=== PATIENT | female | born 1975 | race Caucasian/White ===

== ENCOUNTER 2019-06-13 12:16 | Emergency (ER) | payer BC, OTHER, SELFPAY ==
[2019-06-13 12:21] VITALS: BP 173/85; PULSE 85; RESP 16; TEMP 36.6; O2SAT 98; BMI 26.2
--- NOTE | 2019-06-13 12:32 | XR_ITS ---
WS: [id number] XR hand LT min 3V* [id number] REASON FOR EXAM: trauma FINDINGS: Soft tissue swelling of the thenar and hyperthenar eminence. The phalanges, metacarpals, carpals are normal no fractures are seen. XR/XR hand LT min 3V* [id number] IMPRESSION: Soft tissue swelling of the hand.
--- NOTE | 2019-06-13 14:23 | ED_ITS ---
HPI - Extremity Problem General: Chief complaint: Extremity Injury, Upper Stated complaint: LEFT HAND PAIN Time Seen by Provider: 06/13/19 14:12 History of Present Illness: HPI Narrative: Pt is a 44 y/o F who comes in with an injury to left hand. 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 injury occurred predominantly on the finger #3. The finger is swollen, but she can still move it and has sensation to the finger. She has been applying ice on the finger. The nail and nail bed was not injured. Associated symptoms: Deny chest pain, fever(s) or rash Review of Systems Const: Denies: fever, chills or fatigue Eyes: Denies: change in vision or eye discomfort ENMT: Denies: throat pain, painful swallowing, nasal discharge or nasal congestion Card: Denies: chest pain, palpitations, edema, swelling of feet/ankles, shortness of breath on exertion or shortness of breath when lying down Resp: Denies: shortness of breath, productive cough or non-productive cough GI: Denies: abdominal pain, nausea, vomiting, diarrhea, constipation or blood in stool : Denies: flank pain, painful urination or blood in urine Musc: Reports: extremity pain (L hand finger #3) and extremity swelling (L hand swelling on finger #3); Denies: neck pain or back pain Skin/Breast: Denies: rash or new lesion Neuro: Denies: headache, numbness in extremities or weakness in extremities PFSH ED PFSH: Medical History Avila's deformity, bilateral Plantar wart Porokeratosis Surgical History History of amputation of finger of right hand Hx of cholecystectomy Family History Family/Other Cancer Denies family history of Diabetes CAD (coronary artery disease) Clotting disorder Dementia Hyperlipidemia Psychiatric illness Chronic kidney disease (CKD) Suicide Anesthesia complication Bleeding disorder Family history of premature coronary artery disease Lung disease Hypertension Stroke Social History Smoking and tobacco status: current every day smoker Alcohol intake: current Alcohol intake frequency: holidays/special occasions only Current occupational status: employed Current occupation: [employer] Female Reproductive History: Date of last menstrual period: 05/09/19 Physical Exam Const: COMMON NORMALS: oriented x3 HENMT: COMMON NORMALS: normocephalic HEAD & SCALP: normocephalic MOUTH: oral and palatal mucosa normal THROAT: posterior oropharynx normal and uvula midline Neck/C-Spine: COMMON NORMALS: supple GENERAL: Yes normal visual inspection Resp: COMMON NORMALS: normal respiratory effort, no retractions, no use of accessory muscles and clear to auscultation bilaterally AUSCULTATION: clear to auscultation bilaterally Cardio: COMMON NORMALS: regular rate, regular rhythm, S1 normal heart sound, S2 normal heart sound, no gallops, no clicks, no murmurs and peripheral pulses 2+ throughout RATE: regular rate RHYTHM: regular rhythm HEART SOUNDS: S1 normal and S2 normal PERIPHERAL PULSES: pulses 2+ throughout GI: COMMON NORMALS: normal to inspection, nondistended, normoactive bowel sounds, soft to palpation, non-tender and no masses PALPATION: Yes soft : COMMON NORMALS: Yes no CVA tenderness BLADDER/KIDNEY EXAM: Yes no CVA tenderness Back/Pelvis: COMMON NORMALS: no CVA tenderness Extremity: LEFT UPPER EXTREMITY: Yes hand & digits (No nail bed or nail injury) Left hand and digits: Yes inspection (swelling and ecchymosis of Finger #3), Yes palpation (Tender), Yes ROM (Normal) and Yes neurovascular exam (Intact) Neuro: COMMON NORMALS: oriented x3 and moves all extremities Skin: COMMON NORMALS: no rashes or lesions noted GENERAL SKIN EXAM: no rashes or lesions noted and dry skin Course Vital Signs: Vital signs: Vital Signs Temperature 97.9 F 06/13/19 12:21 Pulse Rate 74 06/13/19 15:11 Respiratory Rate 18 06/13/19 15:11 Blood Pressure 154/104 06/13/19 15:11 Pulse Oximetry 100 06/13/19 15:11 MDM - Extremity (Nontraumatic) Imaging Data^: Xray Ortho: Attestation: I personally reviewed and interpreted this imaging study as follows: Radiologist's impression: [address] [address] XRay Report Signed Patient: Barby Raymond Unit #: [id number] : [id number] Age/Sex: 44 / F ADM Date: 06/13/19 Loc: ER Room/Bed: Attending Dr: Ordering Provider/Ordering MD: Arnie Mac MD, [facility] [place] Date of Service: 06/13/19 Procedure(s): XR hand LT min 3V* [id number] Accession Number(s): [id number] Report Number: [id number] WS: [id number] XR hand LT min 3V* [id number] REASON FOR EXAM: trauma FINDINGS: Soft tissue swelling of the thenar and hyperthenar eminence. The phalanges, metacarpals, carpals are normal no fractures are seen. XR/XR hand LT min 3V* [id number] IMPRESSION: Soft tissue swelling of the hand. Dictated By: Gino Diallo DO Signed By: Gino Diallo DO Signed Date/Time: 06/13/19 1252 DD/ 1251 Discharge Plan Discharge Patient Disposition: Home, Self-Care Clinical Impression: Contusion Qualifiers: Encounter type: initial encounter Contusion area: finger Finger: middle finger Damage to nail status: without damage Laterality: left Qualified Code(s): S60.032A - Contusion of left middle finger without damage to nail, initial encounter Condition: Stable Prescriptions: No Action No Known Home Medications RF: 0 Discharge Orders: Discharge Order (Routine); Ordered 06/13/19 Ordered By: Valente Hutson Referrals: Anita Rodriguez DO [Primary Care Provider] - Discharge Diet: Regular Discharge Activity: Increase activity as tolerated Patient Instructions: Contusion in Adults (ED) Activity Restrictions/Additional Instructions: Continue to ice fingers to help with swelling. Take ibuprofen or aleve for pain. Follow-up with your PCP within 7 days for reevaluation. He can tape hear fingers to help provide support when working for the first day or 2. Continue to try to move fingers to prevent him from stiffening or locking up. Discharge Date/Time: 06/13/19 15:11 Coding Level of Care Code ED Machine Ii Trimmer for Gentry Smith
--- NOTE | 2019-06-13 14:25 | PC.NURSE ---
Patients finger smashed in steel door. Was able to move freely last night. Iced finger and took motrin prior to arrival. Patient states swelling has increased significantly this morning and pain has increased as well. Bruising noted around medial joint of 3rd finger of left hand
[2019-06-13 15:11] VITALS: BP 154/104; PULSE 74; RESP 18; O2SAT 100
== END 2019-06-13 15:11 | disposition home or self-care (01) ==
PROVIDERS: Emergency Provider Physician Assistant; Family Provider Family Medicine; PCP Family Medicine
DX: S60.032A Contusion of left middle finger without damage to nail, initial encounter (principal); F17.200 Nicotine dependence, unspecified, uncomplicated; W22.8XXA Striking against or struck by other objects, initial encounter
CPT/HCPCS: 73130; 99281; 99282

== ENCOUNTER 2020-09-08 21:30 | Emergency (ER) | payer BC, SELFPAY ==
[2020-09-08 21:46] VITALS: BP 170/85; PULSE 80; RESP 16; TEMP 36.2; O2SAT 97; BMI 26.6
--- NOTE | 2020-09-08 21:53 | ED_ITS ---
HPI - Extremity Problem General: Chief complaint: Extremity Injury, Upper Stated complaint: L WRIST LAC///INJURED WHILE WORKING--NOT WC Time Seen by Provider: 09/08/20 21:34 History of Present Illness: HPI Narrative: Patient is a 45-year-old female comes to the ED with left wrist injury. Patient says she was at work today and she was reaching to grab something off one of the shelves. She says that a heavy roll of plastic straps fell and hit her left wrist. Injury occurred just prior to arrival. She rates her pain currently an 8 out of 10. It hurts to move her wrist. Denies any other injuries. Associated symptoms: Deny chest pain, fever(s) or rash Review of Systems Const: Denies: fever(s), chills or fatigue Eyes: Denies: change in vision or eye discomfort ENMT: Denies: throat pain, odynophagia, nasal discharge or nasal congestion Card: Denies: chest pain, palpitations, edema, swelling of feet/ankles, dyspnea on exertion or orthopnea Resp: Denies: dyspnea, productive cough or non-productive cough GI: Denies: abdominal pain, nausea, vomiting, diarrhea, constipation or hematochezia : Denies: flank pain, dysuria or hematuria Musc: Reports: extremity pain (left wrist); Denies: neck pain, back pain or extremity swelling Skin/Breast: Denies: rash or new lesions Neuro: Denies: headache(s), numbness in extremities or weakness in extremities PFS ED PFSH: Medical History Avila's deformity, bilateral Plantar wart Porokeratosis Surgical History History of amputation of finger of right hand Hx of cholecystectomy Family History Family/Other Cancer Denies family history of Diabetes CAD (coronary artery disease) Clotting disorder Dementia Hyperlipidemia Psychiatric illness Chronic kidney disease (CKD) Suicide Anesthesia complication Bleeding disorder Family history of premature coronary artery disease Lung disease Hypertension Stroke Social History Smoking and tobacco status: current every day smoker cigarettes Packs smoked per day: 1.5 Alcohol intake: current Alcohol intake frequency: holidays/special occasions only Current occupational status: employed Current occupation: [employer] Female Reproductive History: Date of last menstrual period: 05/09/19 Physical Exam Const: COMMON NORMALS: no acute distress, patient oriented x3, healthy appearing and alert GENERAL APPEARANCE: cooperative and comfortable HENMT: COMMON NORMALS: normocephalic HEAD & SCALP: normocephalic MOUTH: Normal oral and palatal mucosa present THROAT: posterior oropharynx normal and uvula midline Neck/C-Spine: COMMON NORMALS: supple GENERAL: Yes normal visual inspection Resp: COMMON NORMALS: normal respiratory effort, No retractions, No use of accessory muscles and clear to auscultation bilaterally AUSCULTATION: clear to auscultation bilaterally Cardio: COMMON NORMALS: regular rate, regular rhythm, S1 normal heart sound present, S2 normal heart sound present, No gallops present (Cardio), No clicks present (Cardio), No murmurs present (Cardio) and Peripheral pulses 2+ throughout RATE: regular rate RHYTHM: regular rhythm HEART SOUNDS: S1 normal heart sound present and S2 normal heart sound present PERIPHERAL PULSES: Peripheral pulses 2+ throughout GI: COMMON NORMALS: Normal to inspection, nondistended, normoactive bowel sounds present, Soft to palpation, non-tender and no masses PALPATION: Yes Soft to palpation : COMMON NORMALS: Yes no CVA tenderness BLADDER/KIDNEY EXAM: Yes no CVA tenderness Back/Pelvis: COMMON NORMALS: no CVA tenderness Extremity: GENERAL: Yes normal exam except as noted LEFT UPPER EXTREMITY: Yes wrist Left wrist: Yes inspection (No visible deformity, erythema or swelling noted.), Yes palpation (Tenderness to palpation over radial aspect of wrist.), Yes ROM (Limited due to pain) and Yes neurovascular exam (Intact, radial pulse 2+.) Neuro: COMMON NORMALS: patient oriented x3 and moves all extremities SENSORIUM/ORIENTATION: Yes alert Skin: GENERAL SKIN EXAM: dry skin Course Vital Signs: Vital signs: Vital Signs Temperature 97.1 F L 09/08/20 21:46 Pulse Rate 78 09/08/20 22:29 Respiratory Rate 18 09/08/20 22:29 Blood Pressure 148/102 09/08/20 22:29 Pulse Oximetry 96 09/08/20 22:29 MDM - Extremity (Nontraumatic) Imaging Data^: Xray Ortho: Attestation: I personally reviewed and interpreted this imaging study as follows: My impression: Left wrist x-ray?no acute fractures or findings seen. Discharge Plan Discharge Patient Disposition: Home Clinical Impression: Contusion of wrist, left Qualifiers: Encounter type: initial encounter Qualified Code(s): S60.212A - Contusion of left wrist, initial encounter Condition: Stable Prescriptions: No Action ibuprofen 200 mg capsule 200 mg PO Q6H PRNRF: 0 cannabus PO RF: 0 prednisone 10 mg tablet 10 mg PO DAILY Qty: 42 RF: 0 lidocaine-epinephrine (PF) 2 %-1:200,000 solution 5 ml peripheral nerve block ONCE Qty: 1 RF: 0 meloxicam 15 mg tablet 15 mg PO DAILY 30 Days Qty: 30 RF: 2 Discharge Orders: Discharge ED (Routine); Ordered 09/08/20 Ordered By: Valente Hutson Referrals: Anita Rodriguez DO [Primary Care Provider] - Discharge Diet: Regular Discharge Activity: Increase activity as tolerated Patient Instructions: Contusion in Adults (ED) Activity Restrictions/Additional Instructions: Follow-up with medical provider as directed in 7 to 10 days for reevaluation. Rest and apply ice on left wrist to help with symptoms. You can wear the wrist brace for the next couple days to allow left wrist to heal. Continue taking all home medications as prescribed. Return to the ER or your medical provider if condition worsens. Please read and understand discharge instructions. Thank you for choosing [facility] for your healthcare needs today. Please realize this is an emergency room and that we are providing you with a medical screening exam and this may not be complete and all inclusive of all the testing and or work up that you may need to determine your ailment or severity of your illness. It is very important that you follow up as instructed or that you return to the Emergency Department should you have concerns or if your condition changes or worsens in any way. Coding Level of Care Code ED Metal Wire Technician for Gentry Smith Exam Comprehensive
--- NOTE | 2020-09-08 21:54 | XRR_ITS ---
PROCEDURE INFORMATION: Exam: XR Left Wrist Exam date and time: 09/08/2020 9:56 PM Age: 45 years old Clinical indication: Injury or trauma; Other: Injury at work; Work related; Swelling (edema); Wrist; Left; Injury date: 09/08/2020; Additional info: Injury to left wrist with pain TECHNIQUE: Imaging protocol: XR Left wrist. Views: 3 or more views. COMPARISON: No relevant prior studies available. FINDINGS: Bones/joints: Normal. Soft tissues: Normal. XR/XR wrist LT min 3V* [id number] IMPRESSION: No acute findings.
[2020-09-08 22:29] VITALS: BP 148/102; PULSE 78; RESP 18; O2SAT 96
--- NOTE | 2020-09-08 22:30 | PC.NURSE ---
wrist splint appied to L wrist all SMCs intact prior and post procedure.
== END 2020-09-08 22:33 | disposition home or self-care (01) ==
PROVIDERS: Emergency Provider Physician Assistant; PCP Family Medicine
DX: S60.212A Contusion of left wrist, initial encounter (principal); F17.210 Nicotine dependence, cigarettes, uncomplicated; W20.8XXA Other cause of strike by thrown, projected or falling object, initial encounter
CPT/HCPCS: 73110; 99282

== ENCOUNTER 2021-05-06 15:36 | Outpatient (CLI) | payer BC, SELFPAY ==
--- NOTE | 2021-05-06 15:58 | XR_ITS ---
WS: [id number] XR tibia fibula RT 2V [id number] REASON FOR EXAM: soft tissue mass FINDINGS: No fracture or focal bone lesion. No periosteal reaction. No focal soft tissue abnormality. XR/XR tibia fibula RT 2V [id number] IMPRESSION: Normal right tibia and fibula.
== END 2021-05-06 15:37 | disposition home or self-care (01) ==
LOC: RAD 15:40
PROVIDERS: PCP Family Medicine; Visit Provider Podiatrist Foot & Ankle Surgery
DX: M79.89 Other specified soft tissue disorders (principal); R22.41 Localized swelling, mass and lump, right lower limb
CPT/HCPCS: 73590

== ENCOUNTER 2021-05-13 14:13 | Outpatient (CLI) | payer BC, SELFPAY ==
--- NOTE | 2021-05-13 14:21 | MR_ITS ---
WS: [id number] INDICATION: Soft tissue mass right leg pain TECHNIQUE: MRI of the right lower leg without and with gadolinium enhancement. Coronal T1 STIR and T2 imaging. Sagittal T1 STIR and T2 imaging. Axial PD T2 and T1 imaging.Post gadolinium multiplanar em ging with fat saturation technique. FINDINGS: Comparison May 06, 2021 radiographs Subcutaneous soft tissue edema in the anterior lower leg soft tissues. No drainable fluid collections . No evidence of soft tissue mass. Scattered diffuse edema and enhancement in the proximal and mid ti bial diaphysis with more focal signal abnormality in the mid tibial diaphysis.This lesion measures 12 mm with a small amount of central low signal. No cortical reaction or cortical destruction is apprec iated. Adjacent penetrating posterior tibial vessel. No soft tissue component. Normal fibula. MR/MR lower leg RT wo/w con [id number] IMPRESSION: 1. Diffuse edema with patchy enhancement involving the proximal and mid tibial diaphysis with a more focal lesion in the mid tibial diaphysis measuring 12 mm . No evidence of cortical destruction or periosteal bony reaction. Differential considerations include medial tibial stress syndrome (reed splints) with react tai edema, healing stress fracture, or less likely osteoid osteoma. CT could be helpful in further evaluation to exclude a focal bony lesion. 2. No soft tissue mass. 3. Normal fibula. 4. Small amount of edema in the anterior tibial soft tissues. No fluid collect ions.
[2021-05-13] MEDS: gadobenate dimeglumine 20 mL vial IV (15:06)
== END 2021-05-13 14:14 | disposition home or self-care (01) ==
PROVIDERS: PCP Family Medicine; Visit Provider Podiatrist Foot & Ankle Surgery
DX: M79.604 Pain in right leg (principal); M79.89 Other specified soft tissue disorders
CPT/HCPCS: 73720; A9577

== ENCOUNTER → 2021-07-06 00:01 | Outpatient (BNVA) | payer BC, SELFPAY | PROVIDERS: PCP Family Medicine; Visit Provider Podiatrist Foot & Ankle Surgery | DX: L85.1 Acquired keratosis [keratoderma] palmaris et plantaris (principal); Z20.822 Contact with and (suspected) exposure to COVID-19 | CPT/HCPCS: 87635 ==

== ENCOUNTER 2021-07-10 10:43 | Day surgery (SDC) | payer BC, SELFPAY ==
[2021-07-09 14:54] VITALS: BMI 27.3
[2021-07-10] VITALS (8 sets, daily range): BP systolic 123–157; BP diastolic 73–105; PULSE 75–90; RESP 16–19; TEMP 36.2–36.4; O2SAT 91–98
[2021-07-10 11:15] LABS: OR HCG Qualitative Urine Negative (Negative)
[2021-07-10] MEDS: CELEcoxib 200 mg Capsule 400 MG PO (11:27)
[2021-07-10] MEDS: gabapentin 300 mg Capsule PO (11:27)
[2021-07-10] MEDS: sodium chloride 0.9% 1,000 ML 30 ML IV (11:32)
--- NOTE | 2021-07-10 12:15 | ANES.PREANE2 ---
Pre-Anesthetic Assessment Height/Weight: Height 1.75 m Weight 83.915 kg Temp Pulse Resp BP Pulse Ox 97.2 F L 85 16 157/105 98 07/10/21 11:16 07/10/21 11:16 07/10/21 11:16 07/10/21 11:16 07/10/21 11:16 Preop Diagnosis: Exertional compartment syndrome right leg, peroneal nerve entrapment right Operation Date: 07/10/21 12:25 Proposed Procedures p Fasciotomy & Peroneal Nerve Decompression [id number](Right) - Duong Zuñiga DPM Familial anesthetic complications: patient states she woke up during her gallbladder surgery and saw her intestines and reached down and shoved them back into her stomach. However, she states there was no blue drape Last intake: Intake Last Liquid Date 07/10/21 Last Liquid Time 09:30 Last Solid Date 07/09/21 Last Solid Time 22:30 Social Alcohol and Tobacco Exam alert, oriented x 3, clear to auscultation bilaterally and regular rate & rhythm Airway Mallampati: Class III Dentition: other (multiple missing teeth) Musc/skel Osteoarthritis/DJD Anesthetic Plan ASA status: 1 Anesthesia: General Risk of > 500 ml blood loss (7ml/kg in children): No Medications/Allergies Home Medications Medication Instructions Recorded Confirmed Last Taken Type cannabus PO 10/31/19 05/20/21 Unknown History meloxicam 15 mg tablet 15 mg PO DAILY 30 Days #30 tab 03/13/21 07/10/21 07/07/21 Rx Allergies Allergy/AdvReac Type Severity Reaction Status Date / Time Sulfa (Sulfonamide Allergy ALGY-Rash Verified 06/05/21 15:45 Antibiotics) Current Medications Generic Name Dose Route Start Last Admin Trade Name Freq PRN Reason Stop Dose Admin Sodium Chloride 1,000 mls @ 30 mls/hr 07/10/21 11:15 07/10/21 11:32 Sodium Chloride 0.9% IV 07/11/21 11:14 30 mls/hr .Q24H CAROLYN Administration PFSH Anesthesia Medical History (Updated 06/09/21 @ 18:26 by Duong Zuñiga DPM) Avila's deformity, bilateral Plantar wart Porokeratosis Surgical History History of amputation of finger of right hand Hx of cholecystectomy Family History Family/Other Cancer Denies family history of Diabetes CAD (coronary artery disease) Clotting disorder Dementia Hyperlipidemia Psychiatric illness Chronic kidney disease (CKD) Suicide Anesthesia complication Bleeding disorder Family history of premature coronary artery disease Lung disease Hypertension Stroke Social History Smoking and tobacco status: current every day smoker cigarettes Packs smoked per day: 1.5 Alcohol intake: current Alcohol intake frequency: holidays/special occasions only Current occupational status: employed Current occupation: [employer] Female Reproductive History Date of last menstrual period: 06/30/21 Data Anesthesia Cardiac Studies: No Data to Display
--- NOTE | 2021-07-10 12:28 | P.HP_ITS ---
Providers/Chief Complaint Primary Care Provider: Anita Rodriguez DO Chief Complaint: compartment syndrome rt lower ext due to exertion History of Present Illness Barby Raymond is a 46-year-old female here for testing for possible exertional compartment syndrome to the right leg.? She has a known distance where very predictably when she is exceeded walking greater than approximately 300 feet she begins to feel numbness and pain that radiates down her right leg, localizes pain on the outside of her right leg this can become debilitating if she continues to walk or stand without resting. Patient denies any subjective nausea, vomiting, fever, chills, shortness of breath or chest pain. Review of Systems General: Reports: 10 or more systems reviewed and unremarkable except in HPI and below Const: Denies: fever(s) or chills Eyes: Denies: change in vision Card: Denies: chest pain or palpitations Resp: Denies: dyspnea or productive cough GI: Denies: abdominal pain, nausea or vomiting : Denies: flank pain Musc: Reports: extremity pain Skin/Breast: Denies: rash Neuro: Denies: numbness in extremities, sensory changes or frequent falls Psych: Denies: suicidal ideation Raz/Lymph: Denies: easy bruising Medications/Allergies Home Medications Medication Instructions Recorded Confirmed Last Taken Type cannabus PO 10/31/19 05/20/21 Unknown History meloxicam 15 mg tablet 15 mg PO DAILY 30 Days #30 tab 03/13/21 07/10/21 07/07/21 Rx Allergies Allergy/AdvReac Type Severity Reaction Status Date / Time Sulfa (Sulfonamide Allergy ALGY-Rash Verified 06/05/21 15:45 Antibiotics) PFSH PFSH: Medical History (Updated 06/09/21 @ 18:26 by Duong Zuñiga DPM) Avila's deformity, bilateral Plantar wart Porokeratosis Surgical History History of amputation of finger of right hand Hx of cholecystectomy Family History Family/Other Cancer Denies family history of Diabetes CAD (coronary artery disease) Clotting disorder Dementia Hyperlipidemia Psychiatric illness Chronic kidney disease (CKD) Suicide Anesthesia complication Bleeding disorder Family history of premature coronary artery disease Lung disease Hypertension Stroke Social History Smoking and tobacco status: current every day smoker cigarettes Packs smoked per day: 1.5 Alcohol intake: current Alcohol intake frequency: holidays/special occasions only Current occupational status: employed Current occupation: [employer] Female Reproductive History: Date of last menstrual period: 06/30/21 Vital Signs Vitals Signs: Last Vital Signs Temp 97.2 F L 07/10/21 11:16 Pulse 85 07/10/21 11:16 Resp 16 07/10/21 11:16 BP 157/105 07/10/21 11:16 Pulse Ox 98 07/10/21 11:16 Weight: Weight last 48 hrs Weight 185 lb Physical Exam Narrative: EXAM NARRATIVE: Patient is alert and oriented ?3 and in no acute distress.? The following is a focused bilateral lower extremity exam. VASCULAR: Dorsalis pedis and posterior tibial arteries palpable +2.? Capillary refill time less than 3 seconds to the distal hallux bilaterally. Calf is supple and nontender proximally and distally.? No pedal edema appreciated.? Pedal hair growth present bilaterally. NEUROLOGICAL: Protective sensation intact 10/10 sites, tested with [employer] monofilament to bilateral feet. DERMATOLOGICAL: Hyperkeratotic lesion plantar aspect of right hallux with punched out pigmented lesion this is improving compared to last visit.? There is no pain to palpation at this region.? Recurrence of focal hyperkeratotic lesion with a nucleated core/center consistent with porokeratosis subsecond metatarsal head left foot this is the source of most of her pain.? No surrounding erythema warmth or drainage. MUSCULOSKELETAL: Pain to palpation at right plantar hallux lesion.? Pain to palpation subsecond metatarsal head lesion, left foot.? Decreased ankle joint dorsiflexion bilaterally able to obtain neutral with knee extended and 2? beyond neutral with knee flexed.? Muscle strength 5/5 in all 3 cardinal planes. Palpable prominence at the posterior superior lateral aspect of calcaneus bilaterally.? Pain to palpation at the medial band of the plantar fascia this at the level of the instep. Tenderness palpation at the right anterior lateral leg. CARDIOVASCULAR: S1, S2, normal rate, normal rhythm. Dorsalis pedis and p osterior tibial arteries palpable. LUNGS: Clear to auscltation, no use of acessory muscles, no crackles or wheezes. A&P Assessment and plan (1) Compartment syndrome of right lower extremity due to exertion: Status: Acute (2) Right leg pain: Status: Acute Plan Chronic exertional compartment syndrome right leg compartmental pressures with [place] catheter below. Compartmental readings: Right leg 10 mmHg anterior compartment right leg resting 34 mmHg Lateral compartment right leg resting Bike/Walking 10 min: 40 mmHg right lateral compartment immediately post exercise Follow up on 07/06/21 for COVID and H& P Surgery- Faciotomy of right lateral on 07/10/21 Intracompartmental pressures were taken utilizing [employer] intracompartmental pressure monitoring system 295?1 pressure monitor. Discussed surgical approach is a dual incision for fasciotomy of all 4 compartments of the right leg. Risks include but are not limited to pain, bleeding, numbness, infection, surgical site dehiscence. Failure to alleviate symptoms, herniated muscle, damage to adjacent soft tissue structures, chronic numbness, foot drop and need for further surgical intervention. Also risk for deep vein thrombosis, heart attack, stroke and . Patient is agreeable wishes to proceed. Covid screening negative. Informed consent signed by patient myself. Initialed her right lower extremity. N.p.o. since midnight. Coding Level of Care Code Acute Covering And Lining Supervisor for Gentry Smith Diagnoses Compartment syndrome of right lower extremity due to exertion M79.A21 Right leg pain M79.604
--- NOTE | 2021-07-10 12:31 | W.PM.OPSUD ---
Surgery/Procedure H&P Update DATE OF PROCEDURE: July 10, 2021 DATE H&P PERFORMED: 07/10/21 CHANGES TO PREVIOUS DOCUMENTATION: none PREOP DIAGNOSIS: Exertional compartment syndrome right leg, peroneal nerve entrapment right PLANNED PROCEDURE: Operation Date: 07/10/21 12:25 Proposed Procedures p Fasciotomy & Peroneal Nerve Decompression 92000/26057(Right) - Duong Zuñiga DPM
[2021-07-10] MEDS: lidocaine 1% INJ 20 mL 15 ML XX (13:08)
--- NOTE | 2021-07-10 13:42 | SUR.PHASEI ---
patient awake, states feeling of pressure in right leg but no pain. boot on right foot. patient on room air.
--- NOTE | 2021-07-10 13:53 | P.OP_ITS ---
Operative Report Date of procedure: July 10, 2021 Pre-op diagnosis: Exertional compartment syndrome right leg. Peroneal nerve entrapment right leg. Post-op diagnosis: Same Post-op findings: None Procedure done: Fasciotomy and peroneal nerve decompression right leg. CPT code 43977 and 64232 Implants: 3-0 Vicryl, 3-0 nylon Specimens removed/disposition: None Pathology: None Surgeon: Duong Zuñiga D.P.M. Warehouse Delivery Manager: Bryan Estimated blood loss: 5 See intraoperative documentation IV fluids: None Urine output: 0 Complications: None Brief History: ?She has a known distance where very predictably when she is exceeded walking greater than approximately 300 feet she begins to feel numbness and pain that radiates down her right leg, localizes pain on the outside of her right leg this can become debilitating if she continues to walk or stand without resting.? Experiences right foot drop when this occurs. Intracompartmental pressures were elevated tested with catheter as follows: Chronic exertional compartment syndrome right leg compartmental pressures with [place] catheter below. Compartmental readings: Right leg 10 mmHg anterior compartment right leg resting 34 mmHg Lateral compartment right leg resting Bike/Walking 10 min: 40 mmHg right lateral compartment immediately post exercise Follow up on 07/06/21 for COVID and H& P Surgery- Faciotomy of right lateral on 07/10/21 Intracompartmental pressures were taken utilizing Backdoor intracompartmental pressure monitoring system 295?1 pressure monitor. Recommended fasciotomy with peroneal nerve decompression risks include pain, bleeding, numbness, infection, surgical site dehiscence, failure to reduce compartmental pressures and continuation of symptoms, worsening of symptoms, nerve damage, herniated muscle, decreased muscle strength, need for advanced bracing, need for further surgical intervention also risk for deep vein thrombosis, heart attack, stroke and . Covid screening negative, informed consent signed by patient and myself, initialed the right foot she wishes to proceed no guarantees written, expressed or implied. Procedure: Under mild sedation the patient was brought to the operating room and remained on the gurney in supine position. A timeout was performed. Anesthesia was then administered by the anesthesia service. Local anesthesia injected by myself consisting of 30 cc of one-to-one mixture 1% lidocaine and 0.5% Marcaine plain. Well-padded pneumatic tourniquet applied to the right thigh. The right lower extremity was then scrubbed, prepped and draped utilizing normal aseptic technique. Right foot and leg were exanguinated with an Esmarch bandage and the tourniquet inflated to 250 mmHg. Attention was directed to the right lateral leg where a 15 cm linear long itudinal incision was made through skin with blunt dissection carried down through subcutaneous tissue to the layer of crural fascia. The interval between the anterior compartment and lateral compartment was delineated, peroneal nerve was identified and mobilized utilizing Metzenbaum scissors, nerve had adhesions of crural fascia this was freed and protected throughout the remaining of the procedure. Attention was then directed to the anterior compartment of the right leg where Metzenbaum scissors were utilized to perform a fasciotomy both proximally and distally followed by attention to the lateral compartment and in like fashion a fasciotomy with Metzenbaum scissors was performed with proximally and distally with the scissors pointed away from the peroneal nerve. The incision site was then flushed with saline solution and subcutaneous tissue reapproximated utilizing 3-0 Vicryl and skin reapproximated utilizing 3-0 nylon. Attention was then directed to the right medial leg where 1 cm posterior to the posterior border of the tibia a 15 cm linear longitudinal incision was made with a #15 blade through skin with dissection carried down through subcutaneous tissue and fat layer utilizing blunt technique care was taken to retract and preserve neurovascular and tendinous structures. All bleeders were ligated and cauterized as necessary. Superficial posterior compartment fasciotomies performed utilizing Metzenbaum scissors both proximally and distally. Further dissection just behind the inferior border of the tibia the posterior compartment was released utilizing Metzenbaum scissors and a fasciotomy performed both proximally and distally. All 4 compartments were then released. Of note intraoperatively the right lateral compartment had obvious intracompartmental pressure that was impressive, upon release there was significant gapping of the fascia. Incision site medially was then flushed with saline solution and subcutaneous tissue closed with 3-0 Vicryl skin closed with 3-0 nylon. Both incisions were then dressed with Adaptic, sterile 4 x 4's, Kerlix, Philipp wrap and a cam boot was applied. Tourniquet was deflated and a prompt hyperemic response was noted to the distal digits of the right foot. Patient tolerated the procedure and anesthesia well and was transferred to the PACU with vital signs stable and vascular status intact. Following a period of postoperative monitoring she will be discharged home may be weightbearing as tolerated in the cam boot. She was given at home care instructions and postoperative follow-up as of my cell phone number to contact with any postoperative questions or concerns.
[2021-07-10] MEDS: oxyCODONE-APAP 10-325 mg Tablet 1 TAB PO (14:03)
--- NOTE | 2021-07-10 15:00 | ANE.PACU2 ---
Inpatient post-anesthesia follow up: Airway intact: Yes Vital signs: Temperature 97.5 F Pulse Rate 82 Respiratory Rate 18 Blood Pressure 135/87 Pulse Oximetry 96 Oxygen Delivery Me thod Room Air Oxygen Flow Rate Fraction of Inspir ed Oxygen Hydration adequate: Yes Nausea and vomiting: No Pain level: 2 Mental status: Baseline
== END 2021-07-10 14:20 | disposition home or self-care (01) ==
PROVIDERS: Anesthesiology; PCP Family Medicine; Visit Provider Podiatrist Foot & Ankle Surgery
PROC: (CPT 64708; principal; 2021-07-10 12:15)
DX: M79.A21 Nontraumatic compartment syndrome of right lower extremity (principal); F17.210 Nicotine dependence, cigarettes, uncomplicated
CPT/HCPCS: 27892; 64704; 81025; 84703; J0690; J1100; J1200; J2250; J2405; J2704; J3010; J3490; J7030

== ENCOUNTER → 2022-04-01 09:55 | Outpatient (BNVA) | payer BC, SELFPAY | PROVIDERS: PCP Family Medicine; Visit Provider Family Medicine | DX: Z13.6 Encounter for screening for cardiovascular disorders (principal); R30.0 Dysuria | CPT/HCPCS: 80053; 80061; 81000; 85025; 87077; 87086; 87184 ==

== ENCOUNTER 2022-04-28 15:18 | Outpatient (CLI) | payer OTHER, SELFPAY ==
--- NOTE | 2022-04-28 15:23 | MM_ITS ---
WS: [id number] BILATERAL 3D TOMOSYNTHESIS DIGITAL SCREENING MAMMOGRAPHY WITH CAD CLINICAL INFORMATION: screening mammogram HISTORY: Screening mammogram. RIGHT breast pain and soreness COMPARISON: None. TECHNIQUE: Bilateral CC and MLO views. FINDINGS: Scattered fibroglandular densities bilaterally. Dense subareolar breast tissue. No suspicious focal m ass, asymmetry, calcifications, or architectural distortion. No evidence of malignancy. MM/[place] [id number] IMPRESSION: BI-RADS: 1-Negative FOLLOW UP: 1 Year Follow-up Recommend return to annual screening mammography.
== END 2022-04-28 15:19 | disposition home or self-care (01) ==
LOC: RAD 15:19
PROVIDERS: PCP Family Medicine; Visit Provider Family Medicine
DX: Z12.31 Encounter for screening mammogram for malignant neoplasm of breast (principal)
CPT/HCPCS: 77063; 77067

== ENCOUNTER 2024-01-12 09:20 | Day surgery (SDC) | payer OTHER, SELFPAY ==
[2024-01-12 09:35] VITALS: BP 154/96; PULSE 97; RESP 18; TEMP 36.3; O2SAT 97; BMI 29.5
[2024-01-12] MEDS: sodium chloride 0.9% 1,000 ML 30 ML IV (09:43)
[2024-01-12 09:47] LABS: OR HCG Qualitative Urine Negative (Negative)
--- NOTE | 2024-01-12 09:57 | ANES.PREANE2 ---
Pre-Anesthetic Assessment Height/Weight: Height 5 ft 9 in Weight 200 lb Temp Pulse Resp BP Pulse Ox O2 Del Method 97.3 F L 97 18 154/96 97 Room Air 01/12/24 09:35 01/12/24 09:35 01/12/24 09:35 01/12/24 09:35 01/12/24 09:35 01/12/24 09:35 Preop Diagnosis: Screening colonoscopy Operation Date: 01/12/24 10:20 Proposed Procedures p Colonoscopy - 95575 , Z12.11(Not Applicable) - Alvin Garcia MD Was Beta Dandy taken within 24 hours: N/A Was Clonidine taken within 24 hours: N/A Last intake: Intake Last Liquid Date 01/11/24 Last Liquid Time 20:00 Last Solid Date 01/10/24 Last Solid Time 18:00 Social Tobacco and No alcohol Exam alert, oriented x 3, clear to auscultation bilaterally and regular rate & rhythm Airway Submandibular: within normal limits Cervical ROM: within normal limits Mallampati: Class II Dentition: other (No upper teeth, missing bottom teeth. 1 chipped) Anesthetic Plan ASA status: 2 Anesthesia: MAC Other: No prior issues with anesthesia Current smoker Completed bowel prep Takes occasional meloxicam Denies any cardiac issues METs greater than 4 Plan for MAC anesthetic Medications/Allergies Home Medications Medication Instructions Recorded Confirmed Last Taken Type meloxicam 15 mg tablet 15 mg PO DAILY 90 days #90 tabs 09/27/23 01/11/24 01/10/24 Rx sole supports #1 ea 11/16/23 01/09/24 Unknown Rx cyclobenzaprine 10 mg tablet 10 mg PO TID PRN Spasms 01/11/24 01/11/24 01/07/24 History Allergies Allergy/AdvReac Type Severity Reaction Status Date / Time Sulfa (Sulfonamide Allergy ALGY-Rash Verified 01/09/24 15:07 Antibiotics) Current Medications Generic Name Dose Route Start Last Admin Trade Name Freq PRN Reason Stop Dose Admin Sodium Chloride 1,000 mls @ 30 mls/hr 01/12/24 09:30 01/12/24 09:43 Sodium Chloride 0.9% IV 30 mls/hr .Q24H CAROLYN Administration PFSH Anesthesia Medical History Nicotine dependence, cigarettes, with unspecified nicotine-induced disorders Compartment syndrome of right lower extremity due to exertion Avila's deformity, bilateral Porokeratosis Plantar wart Surgical History History of amputation of finger of right hand Hx of cholecystectomy Family History Family/Other Cancer Denies family history of Diabetes CAD (coronary artery disease) Clotting disorder Dementia Hyperlipidemia Psychiatric illness Chronic kidney disease (CKD) Suicide Anesthesia complication Bleeding disorder Family history of premature coronary artery disease Lung disease Hypertension Stroke Social History Smoking and tobacco/nicotine status: current every day tobacco/nicotine user cigarettes Packs smoked per day: 1.5 Alcohol intake: current Alcohol intake frequency: holidays/special occasions only Substance/Drug Use: never Current occupational status: employed Current occupation: [employer] Female Reproductive History Date of last menstrual period: 11/24/23 Data Anesthesia Cardiac Studies: No Data to Display
--- NOTE | 2024-01-12 10:13 | W.PM.OPSFHP ---
Same Day Surgery H&P Indication for Procedure/HPI DATE OF PROCEDURE: January 12, 2024 CHIEF COMPLAINT/INDICATIONFOR SURGICAL PROCEDURE: need for screening colonoscopy PREOP DIAGNOSIS: Screening colonoscopy PLANNED PROCEDURE: Operation Date: 01/12/24 10:20 Proposed Procedures p Colonoscopy - 93684 , Z12.11(Not Applicable) - Alvin Garcia MD Medications/Allergies* Home Medications Medication Instructions Recorded Confirmed Type cyclobenzaprine 10 mg tablet 10 mg PO TID PRN Spasms 01/11/24 01/11/24 History Allergies/Adverse Reactions Allergy/AdvReac Type Severity Reaction Status Date / Time Sulfa (Sulfonamide Allergy ALGY-Rash Verified 01/09/24 15:07 Antibiotics) Current Medications: Generic Name Dose Route Start Last Admin Trade Name Freq PRN Reason Stop Dose Admin Sodium Chloride 1,000 mls @ 30 mls/hr 01/12/24 09:30 01/12/24 09:43 Sodium Chloride 0.9% IV 30 mls/hr .Q24H CAROLYN Administration Pertinent History/Comorbid Conditions* Medical History (Updated 01/10/24 @ 12:40 by Duong Zuñiga DPM) Nicotine dependence, cigarettes, with unspecified nicotine-induced disorders Compartment syndrome of right lower extremity due to exertion Avila's deformity, bilateral Porokeratosis Plantar wart Surgical History (Updated 05/25/19 @ 22:44 by Duong Zuñiga DPM) History of amputation of finger of right hand Hx of cholecystectomy Family History (Updated 05/11/19 @ 16:10 by Lanie Trujillo LPN) Cancer Family/Other Denies family history of Diabetes CAD (coronary artery disease) Clotting disorder Dementia Hyperlipidemia Psychiatric illness Chronic kidney disease (CKD) Suicide Anesthesia complication Bleeding disorder Family history of premature coronary artery disease Lung disease Hypertension Stroke Social History Smoking and tobacco/nicotine status: current every day tobacco/nicotine user cigarettes Packs smoked per day: 1.5 Alcohol intake: current Alcohol intake frequency: holidays/special occasions only Substance/Drug Use: never Current occupational status: employed Current occupation: [employer] Pertinent Exam Findings alert, oriented x 3 and clear to auscultation bilaterally Recommendations Surgery/Procedure today Coding Level of Care Code Acute Code for Chg Fwd
[2024-01-12 11:35] VITALS: BP 113/72; PULSE 73; RESP 18; TEMP 36.3; O2SAT 95
[2024-01-12 11:45] VITALS: BP 126/74; PULSE 71; RESP 18; O2SAT 94
[2024-01-12 11:59] VITALS: BP 114/83; PULSE 75; RESP 18; O2SAT 98
--- NOTE | 2024-01-12 12:09 | ANE.PACU2 ---
Inpatient post-anesthesia follow up: Airway intact: Yes Vital signs: Temperature 97.3 F Pulse Rate 75 Respiratory Rate 18 Blood Pressure 114/83 Pulse Oximetry 98 Oxygen Delivery Me thod Room Air Oxygen Flow Rate Fraction of Inspir ed Oxygen Hydration adequate: Yes Nausea and vomiting: No Pain level: 1 Mental status: Baseline
== END 2024-01-12 12:09 | disposition home or self-care (01) ==
PROVIDERS: Student in an Organized Health Care Education/Training Program; PCP Family Medicine; Visit Provider Surgery
PROC: 0DJD8ZZ Inspection of Lower Intestinal Tract, Via Natural or Artificial Opening Endoscopic (ICD-10-PCS; CPT 45378; principal; 2024-01-12 10:20)
DX: Z12.11 Encounter for screening for malignant neoplasm of colon (principal); D12.5 Benign neoplasm of sigmoid colon; D12.3 Benign neoplasm of transverse colon; F17.208 Nicotine dependence, unspecified, with other nicotine-induced disorders
CPT/HCPCS: 45385; 81025; 88305; J2704; J7030

== ENCOUNTER 2024-01-27 05:43 | Day surgery (SDC) | payer OTHER, SELFPAY ==
[2024-01-27] VITALS (14 sets, daily range): BP systolic 99–168; BP diastolic 68–98; PULSE 69–95; RESP 15–23; TEMP 36.2–36.7; O2SAT 92–96; BMI 29.7
[2024-01-27] MEDS: sodium chloride 0.9% 1,000 ML 30 ML IV (06:21)
[2024-01-27] MEDS: CELEcoxib 200 mg Capsule 400 MG PO (06:21)
[2024-01-27] MEDS: gabapentin 300 mg Capsule PO (06:21)
--- NOTE | 2024-01-27 06:22 | P.ANESASSM_ITS ---
Pre-Anesthetic Assessment Height/Weight: Height 5 ft 9 in Weight 201 lb Temp Pulse Resp BP Pulse Ox O2 Del Method 98.0 F 86 18 168/98 96 Room Air 01/27/24 06:07 01/27/24 06:07 01/27/24 06:07 01/27/24 06:07 01/27/24 06:07 01/27/24 06:08 Preop Diagnosis: Exertional compartment syndrome right lower extremity. Operation Date: 01/27/24 07:00 Proposed Procedures p Fasciotomy Decompression Fasciotomy(Right) - Duong Zuñiga DPM s Peroneal Nerve Decompression(Right) - Duong Zuñiga DPM Was Beta Dandy taken within 24 hours: N/A Was Clonidine taken within 24 hours: N/A Last intake: Intake Last Liquid Date 01/26/24 Last Liquid Time 19:00 Last Solid Date 01/26/24 Last Solid Time 18:00 Social Tobacco and No alcohol Exam alert, oriented x 3, clear to auscultation bilaterally and regular rate & rhythm Airway Submandibular: within normal limits Cervical ROM: within normal limits Mallampati: Class II Comments: Comments: endentulous on top, denies any loose bottom teeth Anesthetic Plan ASA status: 2 Anesthesia: General Other: No prior issues with anesthesia Patient recently had GI scope in December without issues hCG negative this a.m. Current smoker Denies any cardiac issues METs greater than 4 Plan for general anesthesia with LMA Medications/Allergies Home Medications Medication Instructions Recorded Confirmed Last Taken Type meloxicam 15 mg tablet 15 mg PO DAILY 90 days #90 tabs 09/27/23 01/27/24 01/23/24 Rx sole supports #1 ea 11/16/23 01/25/24 Unknown Rx cyclobenzaprine 10 mg tablet 10 mg PO TID PRN Spasms 01/11/24 01/27/24 01/23/24 History hydrocodone 10 mg-acetaminophen 1 tab PO Q6H PRN pain 7 days #28 01/27/24 Unknown Rx 325 mg tablet tabs polyethylene glycol 1 ea miscellaneous DAILY PRN 01/27/24 01/27/24 01/23/24 History Constipation Allergies Allergy/AdvReac Type Severity Reaction Status Date / Time Sulfa (Sulfonamide Allergy ALGY-Rash Verified 01/25/24 08:34 Antibiotics) [facility] Anesthesia Medical History Nicotine dependence, cigarettes, with unspecified nicotine-induced disorders Compartment syndrome of right lower extremity due to exertion Avila's deformity, bilateral Porokeratosis Plantar wart Surgical History History of amputation of finger of right hand Hx of cholecystectomy Family History Family/Other Cancer Denies family history of Diabetes CAD (coronary artery disease) Clotting disorder Dementia Hyperlipidemia Psychiatric illness Chronic kidney disease (CKD) Suicide Anesthesia complication Bleeding disorder Family history of premature coronary artery disease Lung disease Hypertension Stroke Social History Smoking and tobacco/nicotine status: unknown if used tobacco/nicotine Alcohol intake: current Alcohol intake frequency: holidays/special occasions only Substance/Drug Use: never Current occupational status: employed 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
[2024-01-27 06:28] LABS: OR HCG Qualitative Urine Negative (Negative)
--- NOTE | 2024-01-27 06:29 | P.HPUD_ITS ---
Surgery/Procedure H&P Update DATE OF PROCEDURE: January 27, 2024 DATE H&P PERFORMED: 01/09/24 H&P UPDATE INFORMATION: I have reviewed H&P completed within last 30 days, I have examined patient prior to procedure, No changes to prior documentation and H&P is in [facility] EMR on date indicated PREOP DIAGNOSIS: Exertional compartment syndrome right lower extremity. PLANNED PROCEDURE: Operation Date: 01/27/24 07:00 Proposed Procedures p Fasciotomy Decompression Fasciotomy(Right) - Duong Zuñiga DPM s Peroneal Nerve Decompression(Right) - Duong Zuñiga DPM
[2024-01-27] MEDS: ceFAZolin 2,000 mg SDV 2000 MG IVP (06:59)
[2024-01-27] MEDS: BUPivacaine 0.5% INJ 30 mL INJECTION (07:22)
[2024-01-27] MEDS: lidocaine 2% INJ 20 mL INJECTION (07:22)
--- NOTE | 2024-01-27 07:54 | P.BOP_ITS ---
Date of Procedure: 07/08/23 Surgeon: Duong Zuñiga DPM Hogshead Press Operator(s): BARRETT Procedure(s) performed: Right common peroneal nerve decompression and right leg fasciotomy. Findings of the procedure(s): Compression of right common peroneal nerve at fibular neck secondary muscular septum compression/impingement Estimated blood loss: 2 mL Specimen(s) removed: No specimens Post-operative diagnosis: Exertional compartment syndrome right leg No complications with anesthesia or surgery. Tourniquet time 28 minutes.
--- NOTE | 2024-01-27 07:55 | PM.OP ---
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 CPT code 68002 2) right common peroneal nerve decompression. CPT code 80610 Implants: 3-0 Vicryl, 4 nylon Specimens removed/disposition: None Pathology: None Surgeon: Duong Zuñiga DPM Ironworker Apprentice: Edgard Estimated blood loss: 2 28 IV fluids: See intraoperative documentation Urine output: None Complications: None Brief History: Patient examined and evaluated, findings and treatment options discussed with patient at length. Patient continues to experience exertional compartment syndrome symptoms is unable to walk more than 100 feet without feeling paresthesias, numbness, tightness and pain at the right leg. Of note nerve conduction studies per neurology interpretation is indicative of right peroneal neuropathy distal to the fibular head with demyelination across a segment between fibular head and the ankle could be consistent with compartment syndrome history, no axonal changes. Patient states that her symptoms are getting worse with exertion, she cannot walk fast or climb stairs now. She would like to discuss surgical options, discussed decompression of right common peroneal nerve and fasciotomy of posterior compartment right leg would like to proceed at next available opportunity. I reviewed at length with the patient, the risks, potential complications, benefits, alternatives, expectations, and typical outcomes associated with the surgery. The risks and potential complications were explained in detail, including but not limited to infection, wound dehiscence or soft tissue complications, bleeding and hematoma, chronic edema, neuritis or nerve damage producing numbness or chronic pain, CRPS, failure to relieve pain or worsening pain, thick / painful / unsightly scar, limited motion / stiffness, malposition, delayed union, malunion, or nonunion, fracture, reaction to implants, anesthetic complications, venous thromboembolism, and deformity recurrence. I discussed the notion of no regrets with the patient as it pertains to complications and outcomes. The patient seemed to understand the nature of the proposed care and required convalescence. They asked appropriate questions, answered to their satisfaction. They are aware no guarantees can be made as to a satisfactory outcome and they understand there may be other possible unforeseen complications or outcomes not listed here that will be treated accordingly if they arise. There were no written or implied guarantees given to the patient. They gave informed consent to proceed. Procedure: Under mild sedation the patient was brought to the operating room and placed onto the operative table in supine position. A timeout was performed. Anesthesia was then administered by the anesthesia service. Well-padded pneumatic tourniquet applied to the right high thigh. Right lower extremity was scrubbed, prepped and draped utilizing normal aseptic technique. Right foot and ankle and leg were exanguinated with an Esmarch bandage and the tourniquet inflated to 250 mmHg. Attention was directed to the right lateral leg where bony landmarks were palpated. Able to palpate the fibular head, planned out a oblique incision directly over the anticipated course of the common peroneal nerve as it coursed around the fibular neck, incision was performed through skin with a #15 blade with dissection carried down through subcutaneous tissue down to crural fascia utilizing sharp and blunt technique. All bleeders were ligated and cauterized as necessary. Exposure of the common peroneal nerve was performed sharply and bluntly and the common peroneal nerve was isolated from surrounding soft tissues. Any adherent scar tissue or fibrous bands, septae or fascia compressing the nerve was gently released utilizing sharp dissection, all bleeders were ligated and cauterized as necessary. Attention was directed more distal and posterior to the incision where dissection was carried down to the layer of the posterior compartment were deep crural fascia of the posterior compartment was incised longitudinally under direct visualization. Longitudinal fasciotomy was performed. The incision was irrigated with copious amounts of sterile saline solution and closed in a layered fashion. Subcutaneous tissue reapproximated with 4-0 Vicryl and skin with 4-0 nylon. Dressings were applied consisting of Adaptic, sterile 4 x 4, Kerlix, Philipp wrap and the tourniquet was deflated with a prompt hyperemic response appreciated to the digits of the right foot. Patient tolerated the procedure and anesthesia well and was transferred to the PACU with vital signs stable and vascular status intact. Following a period of postoperative monitoring she will be discharged home may be weightbearing as tolerated, was given at home care instructions and scheduled follow-up.
[2024-01-27] MEDS: fentaNYL 50 mcg/mL INJ 2mL IVP (08:08)
[2024-01-27] MEDS: ondansetron 2 mg/ML SDV 2 mL 4 MG IVP (08:19)
[2024-01-27] MEDS: metoclopramide 5 mg/mL SDV 2 mL 10 MG IVP (08:39)
[2024-01-27] MEDS: scopolamine 1.5 Patch 1 PATCH TRANSDERMA (09:43)
--- NOTE | 2024-01-27 09:52 | ANE.PACU2 ---
Inpatient post-anesthesia follow up: Airway intact: Yes Vital signs: Temperature 97.2 F Pulse Rate 69 Respiratory Rate 20 Blood Pressure 147/89 Pulse Oximetry 93 Oxygen Delivery Me thod Room Air Oxygen Flow Rate 6 Fraction of Inspir ed Oxygen Hydration adequate: Yes Nausea and vomiting: No Pain level: 1 Mental status: Baseline
== END 2024-01-27 09:52 | disposition home or self-care (01) ==
PROVIDERS: Student in an Organized Health Care Education/Training Program; PCP Family Medicine; Visit Provider Podiatrist Foot & Ankle Surgery
PROC: (CPT 27602; principal; 2024-01-27 07:00)
PROC: (CPT 64708; 2024-01-27 07:00)
DX: M79.A21 Nontraumatic compartment syndrome of right lower extremity (principal); G57.01 Lesion of sciatic nerve, right lower limb; F17.200 Nicotine dependence, unspecified, uncomplicated
CPT/HCPCS: 27602; 64722; 81025; J0690; J1100; J2250; J2405; J2704; J2765; J3010; J3490; J7030

== ENCOUNTER → 2024-08-01 13:46 | Outpatient (BNVA) | payer OTHER, SELFPAY | PROVIDERS: PCP Family Medicine; Visit Provider Family Medicine | DX: Z13.6 Encounter for screening for cardiovascular disorders (principal) | CPT/HCPCS: 80053; 80061; 83036; 84439; 84443; 85025 ==

== ENCOUNTER 2025-03-06 08:55 | Outpatient (CLI) | payer OTHER, SELFPAY ==
--- NOTE | 2025-03-06 09:00 | MM_ITS ---
WS: [id number] BILATERAL SCREENING DIGITAL TOMOSYNTHESIS MAMMOGRAM WITH CAD HISTORY: screening COMPARISON: 04/28/2022 Bilateral CC and MLO views with tomosynthesis and synthetic mammography submitted. Computer aided detection analyzed. Breast composition: There are scattered areas of fibroglandular density. No suspicious masses, microcalcifications or architectural distortion. Small intramammary lymph nodes in the anterior RIGHT breast. No suspicious masses or calcifications. MM/MM scr tomosynthesis [id number] IMPRESSION: BI-RADS: 2 - Benign. FOLLOW UP: 1 Year Follow-up
== END 2025-03-06 08:56 | disposition home or self-care (01) ==
LOC: RAD 08:56
PROVIDERS: PCP Family Medicine; Visit Provider Family Medicine
DX: Z12.31 Encounter for screening mammogram for malignant neoplasm of breast (principal); R92.323 Mammographic fibroglandular density, bilateral breasts; R59.0 Localized enlarged lymph nodes
CPT/HCPCS: 77063; 77067

== ENCOUNTER → 2025-03-07 13:39 | Outpatient (BNVA) | payer OTHER, SELFPAY | PROVIDERS: PCP Family Medicine; Visit Provider Family Medicine | DX: R10.A2 Flank pain, left side (principal) | CPT/HCPCS: 81000 ==

== ENCOUNTER 2025-03-14 14:32 | Outpatient (CLI) | payer OTHER, SELFPAY ==
--- NOTE | 2025-03-14 14:30 | CT_ITS ---
WS: [id number] CT ABDOMEN AND PELVIS NONCONTRAST HISTORY: right flank pain - concern for kidney stone TECHNIQUE: Imaging performed through the abdomen and pelvis. Coronal and sagittal reformats are submitted. All CT scans at [facility] use at least one of these dose optimization techniques: automated exposure control; mA and/or kV adjustment per patient size (includes targeted exams where dose is matched to clinical indication); or iterative reconstruction. DLP: 510.10 mGy.cm COMPARISON: None available. Lower thorax: Lung bases are clear. Visualized heart is normal. No hiatal hernia. Liver: Normal size liver. Mild hepatic steatosis. Gallbladder: Surgically absent. Pancreas: Normal size and attenuation. Normal pancreatic duct. No pancreatitis or mass. Spleen: Normal. Adrenal glands: Bilateral adrenal gland low-attenuation masses. Largest on the RIGHT measures 2.9 x 1.7 cm. Hounsfield units are low. LEFT adrenal mass 1.4 x 0.9 cm with low Hounsfield units. Right kidney: Normal size kidney with no mass or hydronephrosis. Left kidney: Normal size kidney with no mass or hydronephrosis. Aorta: Mild atherosclerosis abdominal aorta with no aneurysm. No free fluid, intraperitoneal air or significant lymphadenopathy. GI tract: Stomach is markedly distended with food products. No small bowel obstruction. Normal appendix. No colon obstruction or colitis. Abdominal wall: Negative. No hernia. Pelvis: Uterus is slightly lobulated suggest there may be fibroids. There is no ascites or adenopathy in the pelvis. Osseous structures: No destructive lesions. There is a component of lumbar stenosis at L3-4 due to facet disease and disc disease. CT/CT kidney stone [id number] IMPRESSION: 1. No renal stones or obstruction. No perinephric stranding. 2. Normal appendix. 3. No colitis or diverticulitis. 4. Mild hepatic steatosis. 5. Bilateral adrenal adenomas. 6. No ascites or adenopathy.
== END 2025-03-14 14:33 | disposition home or self-care (01) ==
LOC: RAD 14:33
PROVIDERS: PCP Family Medicine; Visit Provider Family Medicine
DX: R10.A1 Flank pain, right side (principal); K76.0 Fatty (change of) liver, not elsewhere classified; D35.02 Benign neoplasm of left adrenal gland; D35.01 Benign neoplasm of right adrenal gland; Z90.49 Acquired absence of other specified parts of digestive tract; I70.0 Atherosclerosis of aorta; R93.89 Abnormal findings on diagnostic imaging of other specified body structures; M48.061 Spinal stenosis, lumbar region without neurogenic claudication; M47.896 Other spondylosis, lumbar region; M51.369 Other intervertebral disc degeneration, lumbar region without mention of lumbar back pain or lower extremity pain
CPT/HCPCS: 74176